=== PATIENT | male | born 1985 | race Caucasian/White ===

== ENCOUNTER 2020-07-31 17:14 | Outpatient (REF) | payer MEDICARE, SELFPAY | END 2020-07-31 17:15 | disposition home or self-care (01) | LOC: HO.LAB 17:14 | PROVIDERS: Visit Provider Internal Medicine | DX: Z20.828 Contact with and (suspected) exposure to other viral communicable diseases (principal) | CPT/HCPCS: C9803; U0003 ==

== ENCOUNTER 2020-12-05 14:36 | Outpatient (REF) | payer MEDICARE, SELFPAY ==
[2020-12-05 15:37] LABS: COVID-19 Test Negative (Negative); IDNOW Serial# 55D5AD1C
== END 2020-12-05 14:37 | disposition home or self-care (01) ==
LOC: HO.LAB 14:36
PROVIDERS: Visit Provider Internal Medicine
DX: Z20.822 Contact with and (suspected) exposure to COVID-19 (principal)
CPT/HCPCS: 36415; 87635; C9803

== ENCOUNTER 2024-07-21 09:58 | Outpatient (REF) | payer OTHER, SELFPAY ==
--- NOTE | ~2024-07-21 | XR_ITS ---
EXAMINATION: XR SHOULDER, LEFT CLINICAL INFORMATION: S43.402A - Unspecified sprain of left shoulder joint, initial encounter COMPARISON: None available. TECHNIQUE: AP external rotation, Grashey, scapular Y, and axillary views of the left shoulder. FINDINGS: The bones and soft tissues are normal. No fracture. Glenohumeral and acromioclavicular alignment is anatomic with normal joint space. No abnormal soft tissue calcifications. XR/XR shoulder LT min 2V IMPRESSION: Normal left shoulder. Electronically signed by: Spenser Whipple MD 07/23/2024 02:08 PM PING ETIENNE
== END 2024-07-21 09:59 | disposition home or self-care (01) ==
LOC: HO.HMGCX 09:58
PROVIDERS: Visit Provider Internal Medicine
DX: S42.402A Unspecified fracture of lower end of left humerus, initial encounter for closed fracture (principal)
CPT/HCPCS: 73030

== ENCOUNTER 2024-07-21 09:58 | Outpatient (AMB) | payer OTHER, SELFPAY ==
--- NOTE | 2024-07-21 10:00 | MHC.OFFWIV ---
Intake Vital Signs 07/21/24 10:01 Height 6 ft Weight 287 lb BMI 38.9 BP 140/90 H Blood Pressure Location Rt brachial Position Sitting Pulse 84 Pulse Source Pulse Oximeter Pulse Oximetry (%) 97 Oxygen Delivery Method Room Air Intake Visit Reasons: [employer] shoulder injury Intake Note: Patient here for left shoulder pain which started yesterday after falling from his truck. Patient Tobacco Use Status: Current everyday Tobacco user Allergies No Known Allergies [No Known Allergies*] Allergy (Unverified 07/21/24 10:48) Medication List - Last Reconciled 07/21/24 by Hunter Naranjo MD No Known Home Meds Do you need a note to return to daycare/school/sports/work: No HPI [employer] shoulder injury HPI Details 39-year-old male presents to the office for a sick visit. Patient was stepping out of his truck yesterday when he slipped, to address the fall he stretched out his left hand to hold onto the handle. Subsequently he feels he was jammed his shoulder with significant pain on range of motion. He would like to have the shoulder examined. [facility] Social History Patient Tobacco Use Status: Current everyday Tobacco user Physical Exam Vital Signs: Last Vital Signs Pulse 84 07/21/24 10:01 BP 140/90 H 07/21/24 10:01 Pulse Ox 97 07/21/24 10:01 Oxygen Delivery Method Room Air 07/21/24 10:01 BMI result Body Mass Index 38.9 Const Other: Heavyset male in moderate distress. Extrem Other: Left shoulder: No visible swelling or bruising. Range of motion is limited. Minimal abduction, flexion or extension secondary to pain. Assessment & Plan Assessment & Plan (1) Left shoulder strain: Code(s): S46.912A - Strain of unspecified muscle, fascia and tendon at shoulder and upper arm level, left arm, initial encounter Plan: x-ray images personally reviewed by me. No dislocation or fracture seen. Arm sling provided, meloxicam and Flexeril ordered. Patient was advised to use a cold pack followed by heat. Orders: Orders XR shoulder LT min 2V Today S43.402A - Unspecified sprain of left shoulder joint, initial encounter Coding Level of Care Code New Pt Level 4 (38409) Diagnoses Left shoulder strain S46.912A
[2024-07-21 10:01] VITALS: BP 140/90; PULSE 84; O2SAT 97; BMI 38.9
== END 2024-07-21 11:35 | disposition home or self-care (01) ==
PROVIDERS: Visit Provider Internal Medicine
DX: S46.912A Strain of unspecified muscle, fascia and tendon at shoulder and upper arm level, left arm, initial encounter (principal)

== ENCOUNTER 2024-07-31 18:30 | Emergency (ER) | payer OTHER, SELFPAY ==
--- NOTE | ~2024-07-31 | CT_ITS ---
EXAMINATION: CT CERVICAL SPINE WITHOUT CONTRAST CLINICAL INFORMATION: Neck pain. COMPARISON: None available. TECHNIQUE: Noncontrast CT imaging of the cervical spine was performed without contrast. Coronal and sagittal reformatted images were obtained. This CT examination was performed using dose optimization techniques as appropriate, variously including the following: *Automated exposure control *Adjustment of mA and/or kV according to patient size (this includes techniques or standardized protocols for targeted exams where dose is matched to indication/reason for exam; i.e. extremities or head) *Use of iterative reconstruction technique DLP: 834 mGy-cm FINDINGS: There is anatomic alignment of the vertebral bodies and posterior elements. The atlantoaxial and atlantooccipital articulations are intact. Vertebral body heights and intervertebral disc spaces are maintained. No evidence of acute fracture. No prevertebral soft tissue swelling. Visualized portions of the lung apices are unremarkable. The thyroid gland is unremarkable. CT/CT cervical spine wo IV con IMPRESSION: No acute abnormality within the cervical spine. Fleischner guidelines were followed. Electronically signed by: Luiz Flanagan MD 07/31/2024 09:33 PM EST JAIMIE
[2024-07-31 19:34] VITALS: BP 110/73; PULSE 80; RESP 20; TEMP 36.9; O2SAT 98; BMI 37.8
--- NOTE | 2024-07-31 19:38 | ED.GENADULT ---
HPI - General Adult General Chief complaint: General Medical Stated complaint: neck pain, stiffness, sob Time Seen by Provider: 07/31/24 22:36 History of Present Illness ED Provider: Jose MURRELL narrative: The patient is a 39-year-old male who presents for evaluation of pain in the right side of his neck. Denies any significant past medical history. He is a smoker. He denies using any injectable drugs. He says that about 2 weeks ago he slipped and and fell and injured his left shoulder. He says that he was seen at an urgent care center and had a negative x-ray. He was prescribed cyclobenzaprine. He says that over the last 2 days he has developed pain in the right side of the back of his neck. This came on fairly abruptly yesterday. It was not associated with any injury or movement. He says that he woke up with the neck feeling that way yesterday at around 14:00. He has had no fever, sweats, chills. He has never had a neck problem like this before. Related Data Previous Rx's ?Medication ?Instructions ?Recorded cyclobenzaprine 10 mg tablet 10 mg PO BEDTIME #14 tabs 07/21/24 meloxicam 15 mg tablet 15 mg PO DAILY #14 tabs 07/21/24 cyclobenzaprine 10 mg tablet 10 mg PO TID PRN muscle spasm #14 08/01/24 tabs ibuprofen 600 mg tablet 600 mg PO Q6H PRN pain #14 tabs 08/01/24 tramadol 50 mg tablet 50 mg PO Q6H PRN pain #10 tabs 08/01/24 Allergies Allergy/AdvReac Type Severity Reaction Status Date / Time No Known Allergies Allergy Verified 07/31/24 19:39 [No Known Allergies*] Review of Systems Review of Systems: Yes all other systems are reviewed and are negative [facility] Social History Social History Patient Tobacco Use Status: Current everyday Tobacco user Smoked in Last 30 Days: Yes Use of substances other than those prescribed or required for medical reasons: No Advance Directives: No Advance Directives Information Provided: No Do you have a plan to hurt others: No Plan Physical Exam ED Vital Signs: Vital Signs - 24 hr 07/31/24 19:34 08/01/24 00:30 08/01/24 00:34 Temperature 98.4 F 97.8 F 97.8 F Pulse Rate 80 63 63 Respiratory Rate 20 17 17 Blood Pressure 110/73 121/65 121/65 Pulse Oximetry 98 94 94 Oxygen Delivery Method Room Air Room Air Room Air BMI result Body Mass Index 37.8 Const Other: The patient Is awake and alert. He is a large 39-year-old male. He seemed tired but not in obvious acute distress. He did not seem toxic. HENMT Other: Face is symmetrical. Mucous membranes moist. Tongue is midline. Eyes Other: Pupils are round equal, conjunctivae are clear, extraocular movements intact. Neck Other: Patient has tenderness in the right posterior neck. This seems to be primarily muscular tenderness. No masses appreciated. No anterior neck tenderness. No neck swelling. He has pain with range of motion of the neck but does not seem to have a fixed torticollis. Resp Effort & Inspection: normal respiratory effort Auscultation: clear to auscultation bilaterally Cardio Rate: regular rate Rhythm: regular rhythm Heart sounds: S1 normal heart sound present and S2 normal heart sound present Skin Other: The skin is dry and unremarkable Neuro Other: the patient is awake and alert. Cranial nerves are intact. He has normal strength and sensation in his arms and his legs. Gait is steady. He is neurologically intact. Extrem Other: No peripheral edema. Course Course Course Narrative: RME: 39-year-old male presents to ED for neck pain without any trauma. Patient is painful to turn neck to the right. Patient denies any headache, photophobia, nausea, vomiting, fever, or chills. Cervical spine CT scan ordered Medications Administered Discontinued Medications Generic Name Dose Route Start Last Admin Trade Name Cristina PRN Reason Stop Dose Admin Acetaminophen 975 mg 07/31/24 22:43 07/31/24 22:56 Acetaminophen 325 Mg Tablet PO 07/31/24 22:44 975 mg ONCE ONE Administration Ketorolac Tromethamine 60 mg 07/31/24 22:43 07/31/24 22:55 Ketorolac Tromethamine 60 Mg/2 Ml Vial IM 07/31/24 22:44 60 mg ONCE ONE Administration Medical Decision Making Medical Decision Making MDM Narrative: A CT scan of the neck have been ordered at triage. This is negative for acute findings. Basic labs are unremarkable. This seems to be a case of musculoskeletal neck pain. He has been using cyclobenzaprine without relief. He will be discharged with instructions to use acetaminophen 1000 mg 3 times a day, additionally I have sent prescriptions for ibuprofen, cyclobenzaprine, and tramadol. He should rest and take it easy and avoid activities which exacerbate his pain. He should work on getting a primary care doctor. Lab Data 07/31/24 23:49 07/31/24 23:49 Labs: Lab Results 07/31/24 07/31/24 Range/Units 19:42 23:49 WBC 8.4 (4.8-10.8) X10*3/uL RBC 4.73 (4.60-5.80) X10*6/uL Hgb 13.7 L (14.0-18.0) g/dl Hct 40.6 L (42.0-52.0) % MCV 85.8 (80.0-98.0) fL MCH 29.0 (27.0-33.0) pg MCHC 33.7 (31.0-36.0) g/dl RDW 12.6 (11.0-16.0) % Plt Count 292 (160-400) X10*3/uL MPV 9.2 L (9.4-12.4) fL Immature Gran % (Auto) 0.7 H (0.0-0.4) % Neut % (Auto) 43.7 L (45-73) % Lymph % (Auto) 40.1 H (20-40) % [place] % (Auto) 10.4 (2-11) % Eos % (Auto) 4.1 H (0-4) % Baso % (Auto) 1.0 (0-2) % Lymph # (Auto) 3.4 (1.2-4.9) X10*3/uL [place] # (Auto) 0.9 (0.1-1.2) X10*3/uL Eos # (Auto) 0.3 (0.0-0.4) X10*3/uL Baso # (Auto) 0.1 (0.0-0.2) X10*3/uL Abs Immat Gran (auto) 0.06 H (0.00-0.03) X10*3/uL Absolute Neuts (auto) 3.7 (2.0-8.3) x10*3/uL Absolute Nucleated RBC 0.000 (0.0-0.012) X10*3/uL Nucleated RBC % (auto) 0.0 (0.0-0.2) /100WBC Sodium 138 (135-145) mmol/L Potassium 3.6 (3.3-5.1) mmol/L Chloride 108 (96-108) mmol/L Carbon Dioxide 24 (22-29) mmol/L Anion Gap 10 L (12-20) BUN 16 (9-16) mg/dL Creatinine 0.78 (0.5-1.4) mg/dL Estim Creat Clear Calc 176.5 Estimated GFR > 60 Random Glucose 110 (60-115) mg/dL Calcium 8.7 (8.4-10.2) mg/dL C-Reactive Protein 1.22 H (< or = 0.50) mg/dL Influenza Type A (PCR) NEGATIVE (Negative) Influenza Type B (PCR) NEGATIVE (Negative) RSV RNA Qual (PCR) NEGATIVE (Negative) SARS-CoV-2 RNA (RT-PCR) NEGATIVE (Negative) Discharge Plan Discharge Clinical Impression: Neck pain on right side Patient Disposition: Home, Self-Care Instructions: Acute Neck Pain (ED) Additional Instructions: I believe that you were having some kind of muscle spasm type pain in your right neck. A CT scan was done of your neck which is unremarkable. Blood tests were also done which are unremarkable. For pain management you should take 2 extra-strength acetaminophen (Tylenol) up to 3 times a day as needed. In addition you may take the prescribed ibuprofen every 6 hours as needed. I have also sent prescriptions for the muscle relaxant cyclobenzaprine and the pain medication tramadol. Do not take these medications if you are going to drive or operate heavy machinery or do anything elsewhere it is important that you are completely alert. My hope is that the muscle pain will get better in the next several days. Please work on getting a primary care doctor. Please try to contact [facility] [employer] (previously known as [facility] in [place] to try to get established with a new primary care doctor. Return to the emergency room if significantly worse. Prescriptions: New ibuprofen 600 mg tablet 600 mg PO Q6H PRN (Reason: pain) Qty: 14 0RF cyclobenzaprine 10 mg tablet 10 mg PO TID PRN (Reason: muscle spasm) Qty: 14 0RF tramadol 50 mg tablet 50 mg PO Q6H PRN (Reason: pain) Qty: 10 0RF No Action meloxicam 15 mg tablet 15 mg PO DAILY Qty: 14 0RF cyclobenzaprine 10 mg tablet 10 mg PO BEDTIME Qty: 14 0RF Referrals: Linda Guillen. Kamari Bruner [Provider Group] (Needs new PCP) Interventions: ED Discharge Assessment Last Done: 08/01/24 00:34 Discharge Date/Time: 08/01/24 00:35 Print Language: Vietnamese
[2024-07-31 20:22] LABS: Influenza A PCR NEGATIVE (Negative); Influenza B PCR NEGATIVE (Negative); Resp Syncy Virus RNA Qual PCR NEGATIVE (Negative); SARS COV2 PCR INHOUSE NEGATIVE (Negative)
[2024-07-31] MEDS: Ketorolac Tromethamine 60 MG/2 ML VIAL IM (22:55)
[2024-07-31] MEDS: Acetaminophen 325 MG TABLET 975 MG PO (22:56)
[2024-07-31 23:53] LABS: MANUAL DIFF FLAG NO
[2024-08-01] LABS: Basophils Absolute Auto 0.1 X10*3/uL (0.0-0.2); Eosinophils Absolute Auto 0.3 X10*3/uL (0.0-0.4); Eosinophils Percent Auto 4.1 % (0-4); Hematocrit 40.6 % (42.0-52.0); Hemoglobin 13.7 g/dl (14.0-18.0); Imm Gran Abs Auto 0.06 X10*3/uL (0.00-0.03); Imm Gran Pct Auto 0.7 % (0.0-0.4); Lymphocytes Absolute Auto 3.4 X10*3/uL (1.2-4.9); Lymphocytes Percent Auto 40.1 % (20-40); Mean Corpuscular HGB Conc 33.7 g/dl (31.0-36.0); Mean Corpuscular Volume 85.8 fL (80.0-98.0); Mean Platelet Volume 9.2 fL (9.4-12.4); Monocytes Absolute Auto 0.9 X10*3/uL (0.1-1.2); Monocytes Percent Auto 10.4 % (2-11); Neutrophils Absolute Auto 3.7 x10*3/uL (2.0-8.3); Neutrophils Percent Auto 43.7 % (45-73); Platelet Count 292 X10*3/uL (160-400); Red Blood Count 4.73 X10*6/uL (4.60-5.80); Red Cell Distribution Width 12.6 % (11.0-16.0); White Blood Count 8.4 X10*3/uL (4.8-10.8)
[2024-08-01 00:10] LABS: Anion Gap 10 (12-20); Blood Urea Nitrogen 16 mg/dL (9-16); C Reactive Protein 1.22 mg/dL (< or = 0.50); Calcium 8.7 mg/dL (8.4-10.2); Carbon Dioxide 24 mmol/L (22-29); Chloride 108 mmol/L (96-108); Creatinine Clr Calc Pharmacy 176.5; Estimated Glomerular Filt Rate > 60; Glucose Random 110 mg/dL (60-115); Potassium 3.6 mmol/L (3.3-5.1); Sodium 138 mmol/L (135-145)
[2024-08-01 00:30] VITALS: BP 121/65; PULSE 63; RESP 17; TEMP 36.6; O2SAT 94
[2024-08-01 00:34] VITALS: BP 121/65; PULSE 63; RESP 17; TEMP 36.6; O2SAT 94
== END 2024-08-01 00:35 | disposition home or self-care (01) ==
PROVIDERS: Physician Assistant; Emergency Provider Emergency Medicine
DX: M54.2 Cervicalgia (principal); R06.02 Shortness of breath; M25.512 Pain in left shoulder; F17.210 Nicotine dependence, cigarettes, uncomplicated; Z03.818 Encounter for observation for suspected exposure to other biological agents ruled out; Z79.899 Other long term (current) drug therapy
CPT/HCPCS: 0241U; 36415; 72125; 80048; 85025; 86140; 96372; 99284; J1885

== ENCOUNTER 2025-08-21 01:05 | Emergency (ER) | payer OTHER, SELFPAY ==
[2025-08-21 01:09] VITALS: BP 135/69; PULSE 82; RESP 24; TEMP 36.4; BMI 35.9
--- OUTSIDE RECORDS SUMMARY | 2025-08-21 08:35 | XMS_ITS | Clinical Summary ---
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 Name Role Phone Berkley Salvador MD Primary Care Provider Unava ilable Surgical History Surgery Date Site/Laterality Comments OTHER SURGICAL HISTORY PROCEDURE: OK OPEN TX DISTAL FIBULAR FRACTURE LAT MALLEOLUS; COMMENT: left ankle 1999 Medical History Medical History Date Comments Generalized anxiety disorder 12/06/2012 DX: Generalized anxiety disorder Panic attacks 12/06/2012 DX:Panic attacks H/O febrile seizure 12/06/2012 DX:H/O febri le seizure Family History Relation Name Status Comments Brother 1 Alive Brother 2 Alive Daughter stillborn Father Alive back pain Mother Alive back pain, DM, HTN Social History Tobacco Use Types Packs/Day Years Used Date Smoking Tobacco: Every Day Smokeless Tobacco: Never Alcohol Use Standard Drinks/Week Comments No 0 (1 standard drink = 0.6 oz pur e alcohol) Sex and Gender Information Value Date Recorded Sex Assigned at Not on file Legal Sex Male 7:38 AM EST Gender Identity Not on file Sexual Orientation Not on file Plan of Treatment Health Maintenance Due Date Last Done Comments Hepatitis B Vaccines (1 of 3 - 19+ 3-dose series) 2005 HPV Vaccines (1 - 3-dose SCD M series) 2013 DTaP,Tdap,and Td Vaccines (2 - Td or Tdap) 08/10/2022 08/10/2012 Depression Screening 08/23/2024 COVID-19 Vaccine ( - 2024-2 6 season) 2025 Influenza Vaccine (#1) 2025 08/10/2012 RSV Immunization Adult Patie nts (1 - 1-dose 75+ series) 2061 HIB Vaccines Aged Out No longer eligi ble based on patient's age to complete this topic Hepatitis A Vaccines Aged Out No long er eligible based on patient's age to complete this topic IPV Vaccines Aged Out No longer eligi ble based on patient's age to complete this topic MMR Vaccines Aged Out No longer eligi ble based on patient's age to complete this topic Meningococcal ACWY Vaccine Aged Out N o longer eligible based on patient's age to complete this topic Meningococcal B Vaccine Aged Out No l onger eligible based on patient's age to complete this topic Pneumococcal Vaccine: Pediat rics (0 to 5 Years) and At-Risk Patients (6 to 49 Years) Aged Out No longer eligi ble based on patient's age to complete this topic RSV Immunization Patients Un melissa 20 months Aged Out No longer eligible b ased on patient's age to complete this topic Varicella Vaccines Aged Out No longer eligible based on patient's age to complete this topic Care Teams [employer] Instrument [employer] Maker Relationship Specialty Start Date End Date Berkley Salvador MD PCP - General Internal Medicine 10/13/17
--- OUTSIDE RECORDS SUMMARY | 2025-08-21 08:35 | XMS_ITS | Clinical Summary ---
Author Organization [facility] Address [address] [address] Phone Care Team Providers Care Senior J2Ee Developer Name Role Phone Pcp, Unknown Primary Care Provider Unavailabl e Medications No known medications Active Problems No known active problems Social History Tobacco Use Types Packs/Day Years Used Date Smoking Tobacco: Never Assessed Education Answer Date Recorded Are you interested in more education? Not on miriam e 12/19/2022 Are you concerned about learning? Not on file 12/19/2022 No 12/19/2022 No 12/19/2022 Digital Access Answer Date Recorded No 01/17/2023 No 01/17/2023 Reliable internet access at home? Not on file 01/17/2023 Device with a working camera? Not on file Sex and Gender Information Value Date Recorded Sex Assigned at Not on file Legal Sex Male 10:07 AM EST Gender Identity Not on file Sexual Orientation Not on file Last Filed Vital Signs Vital Sign Reading Time Taken Comments Blood Pressure 132/86 10/06/2021 12:38 PM EST Pulse 68 10/06/2021 12:38 PM EST Temperature 36.7 C (98.1 F) 10/06/2021 12:38 PM EST Respiratory Rate 18 10/06/2021 12:38 PM EST Oxygen Saturation 98% 10/06/2021 12:38 PM EST Inhaled Oxygen Concentration - - Weight 108 kg (238 lb) 10/06/2021 12:38 PM EST Height 182.9 cm (6') 10/06/2021 12:38 PM EST Body Mass Index 32.28 10/06/2021 12:38 PM EST Plan of Treatment Health Maintenance Due Date Last Done Comments Adult Td,Tdap Booster 1986 LIPID PANEL 1986 DEPRESSION SCREENING 1998 SMOKING Hx and SMOKELESS TOB ACCO SCREENING 1999 HEPATITIS C SCREENING 2004 HIV ONE-TIME SCREENING (18-6 5 YEARS) 2004 INFLUENZA VACCINE (#1) 2025 COVID-19 VACCINE ( - 2024-2 6 season) 2025 HEPATITIS A VACCINES Aged Out No long er eligible based on patient's age to complete this topic HIB VACCINES Aged Out No longer eligi ble based on patient's age to complete this topic MENINGOCOCCAL VACCINES (ACWY) Aged Out No longer eligible based on patient's age to complete this topic MENINGOCOCCAL VACCINES (B) Aged Out N o longer eligible based on patient's age to complete this topic PNEUMOCOCCAL VACCINES (0-49 years) Aged Out No longer eligible based on patient's age to complete this topic Medical Devices Not on file Insurance MEDICARE A [facility] HMO [facility]IC[facility] MEDIC[facility] A [facility] MEDICARE A [facility] MED[facility] A [facility] MEDICARE A [facility] HMO MEDIC[facility] A [facility] Care Teams Senior J2Ee Developer Relationship Specialty Start Date End Date Pcp, Unknown PCP - General 09/25/21 Additional Source Comments The information contained in this document represents components of the legal health record. It is not the complete legal health record.[facility]
== END 2025-08-21 07:10 | disposition home or self-care (01) ==
PROVIDERS: Emergency Provider Emergency Medicine
DX: J10.1 Influenza due to other identified influenza virus with other respiratory manifestations (principal); R11.2 Nausea with vomiting, unspecified; R05.9 Cough, unspecified; Z03.818 Encounter for observation for suspected exposure to other biological agents ruled out
CPT/HCPCS: 99281; 99283